=== PATIENT | male | born 1960 | race Caucasian/White ===

== ENCOUNTER → 2018-12-09 | Outpatient (CLI) | payer OTHER, MEDICARE | END | disposition home or self-care (01) | LOC: CVU 14:15 | PROVIDERS: ATTEND Pain Medicine Interventional Pain Medicine | DX: Z01.810 Encounter for preprocedural cardiovascular examination (principal); I37.1 Nonrheumatic pulmonary valve insufficiency; M54.5 Low back pain | CPT/HCPCS: 71045; 93306 ==

== ENCOUNTER 2019-02-27 02:38 | Observation (INO) | payer OTHER, MEDICARE ==
[~2019-02-27] VITALS: Ht 172.7 cm; Wt 100.5 kg
[2019-02-27 13:41] VITALS: BP 155/95
== END 2019-02-27 16:20 | disposition home health service (06) ==
LOC: ED 04:43 → INTOOBSV 04:50 → EDIP 04:50 → 4EST 06:21 → DCLOUNGE 16:10
PROVIDERS: ADMIT Student in an Organized Health Care Education/Training Program; ATTEND Student in an Organized Health Care Education/Training Program
DX: G35 Multiple sclerosis (principal); M62.81 Muscle weakness (generalized); Z68.33 Body mass index [BMI] 33.0-33.9, adult; Z79.82 Long term (current) use of aspirin; M62.838 Other muscle spasm; E78.5 Hyperlipidemia, unspecified; Z86.73 Personal history of transient ischemic attack (TIA), and cerebral infarction without residual deficits; Z87.891 Personal history of nicotine dependence
CPT/HCPCS: 36415; 70450; 70496; 70498; 80048; 81003; 82550; 83036; 83735; 84484; 85025; 93005; 96374; 97163; 97167; 99285; G0378; J3360; Q9967